=== PATIENT | female | born 1990 | race Caucasian/White ===

== ENCOUNTER 2017-04-25 20:51 | Emergency (ER) | payer OTHER ==
[2017-04-25] MEDS ORDERED: BUPIVACAINE HCL/PF 5 MG/ML 10ML VIAL IV ONE (22:23)
[2017-04-25] MEDS ORDERED: cefTRIAXone SODIUM 1 GM VIAL ONE (23:06)
[2017-04-25] MEDS ORDERED: Lidocaine 1% 5ml(IM or SUTURE)(PAIN CLINIC) ONE (23:07)
[2017-04-25] MEDS ORDERED: oxyCODONE/ACETAMINOPHEN 5/325 TABLET PO ONE (23:07)
[2017-04-25] MEDS: Lidocaine 1% 5ml(IM or SUTURE)(PAIN CLINIC) IJ ONE (23:11)
[2017-04-25] MEDS: BUPIVACAINE HCL/PF 5 MG/ML 10ML VIAL IJ ONE (23:11)
[2017-04-25] MEDS: cefTRIAXone SODIUM 1 GM VIAL IM ONE (23:11)
[2017-04-25] MEDS: oxyCODONE/ACETAMINOPHEN 5/325 TABLET PO ONE (23:11)
[2017-04-25 23:46] VITALS: BP 136/82
--- NOTE | 2017-04-26 06:48 | ED Physician Documentation ---
Abscess - HISTORIAN Historian: patient - HPI Stated Complaint: insect bite Chief Complaint: Abscess Additional Information: spider bite Onset: days ago (3) Timing: worse Duration: worse Location: other (left gluteus walter) Quality: painful Identified Cause?: Yes (spider bite) When Did Symptoms Start: 04/22/17 Where: home Context: Medication Exposure: none Context: Food Exposure: none Context: Other Exposure: spider bite Further Comments: no - ROS CONST: none CVS/RESP: none EYES/ENT: none GI/: none MS/SKIN/LYMPH: other (warm, painful rash left gluteal area) NEURO/PSYCH: none - PAST HX Past History: none Other History: none Surgeries/Procedures: Yes (c-sect, t and a) Immunizations: referred to PCP Allergies/Adverse Reactions: Allergies Allergy/AdvReac Type Severity Reaction Status Date / Time amoxicillin AdvReac Severe Hives Verified 04/25/17 21:01 Home Medications: Ambulatory Orders Medication Instructions Recorded Naproxen [Naprosyn] 500 mg PO Q6 PRN 04/25/17 Sulfamethoxazole/Trimethoprim 1 each PO BID 04/25/17 [Bactrim Ds] - SOCIAL HX Smoking History: non-smoker Alcohol Use: none Drug Use: none - FAMILY HX Family History: none - VITAL SIGNS Vital Signs: Vital Signs Temp Pulse Resp BP Pulse Ox 97.9 F 74 16 136/82 99 04/25/17 23:35 04/25/17 23:35 04/25/17 23:35 04/25/17 23:35 04/25/17 23:35 - REVIEWED ASSESSMENTS Nursing Assessment Reviewed: Yes Vitals Reviewed: Yes Procedures Site: left gluteal area Blade Size: 11 I & D Procedure: betadine prep, sterile drapes applied, sterile dressing applied , gauze wick placed Progress: well tolerated, 12 cc 0.5 % Marcaine used for local anesthesia, bleeding moderate, no complications Progress - Results/Orders Results/Orders: wound culture taken - Progress Progress: see procedure note, stable entire time in er, given 1 gram rocephin im in er Critical Care Note - Critical Care Note Total Time (mins): 0 ED Results Lab/Radiology - Lab Results Lab Results: none ordered - Radiology Radiology Impressions: none ordered - Orders Orders: ED Orders Category Date Time Status WOUND CULTURE Routine Lab 04/25/17 21:00 Received Bupivacaine HCl/Pf [Marcaine 0.5%] Med 04/25/17 23:04 Discontinued 10 mg IJ NOW ONE Bupivacaine HCl/Pf [Marcaine 0.5%] Med 04/25/17 22:23 Discontinued 50 mg IV .STK-MED ONE Lidocaine 1% 5ml(IM or SUTURE) [Xylocaine] Med 04/25/17 23:07 Discontinued 50 mg .ROUTE .STK-MED ONE Lidocaine 1% 5ml(IM or SUTURE) [Xylocaine] Med 04/25/17 23:04 Discontinued 50 mg IJ NOW ONE cefTRIAXone SODIUM [Rocephin] Med 04/25/17 23:06 Discontinued 1 gm .ROUTE .STK-MED ONE cefTRIAXone SODIUM [Rocephin] Med 04/25/17 23:04 Discontinued 1 gm IM NOW ONE oxyCODONE HCL/ACETAMINOPHEN [Percocet 5-325 mg Tablet] Med 04/25/17 23:07 Discontinued 1 each PO .STK-MED ONE oxyCODONE HCL/ACETAMINOPHEN [Percocet 5-325 mg Tablet] Med 04/25/17 23:04 Discontinued 1 each PO NOW ONE Abscess Physical Exam - EXAM General Appearance: alert, moderate distress Skin: warm,dry, tender indurated area, pointing fluctuant with erythema, erythema Location: other (left gluteus walter) Character: asymmetric, other (4 cm round patch) Symptoms: warmth, tenderness, induration Extremities: non-tender, nml ROM, no edema EENT: eyes nml inspection, lips nml, gums nml, pharynx nml Neck: trachea midline, no swelling Respiratory: no resp distress, chest non-tender, breath sounds normal CVS: reg. rate & rhythm, heart sounds nml Abdomen: non-tender, no organomegaly, nml bowel sounds, no distention Neuro/Psych: oriented x3, CN's nml as tested, motor nml, sensation nml, mood/ affect nml, disoriented Discharge Clincal Impression: Abscess Referrals: Primary Doctor,No [Primary Care Provider] - 2 Days Home Medications: Ambulatory Orders Naproxen [Naprosyn] 500 mg PO Q6 PRN 04/25/17 Sulfamethoxazole/Trimethoprim [Bactrim Ds] 1 each PO BID 04/25/17 Comments: Discharged with orders to finish bactrim ds as directed, tetracycline 500 mg 2 p.o. bid #40, no refill and meloxicam 7.5 mg 1 p.o. bid #20, no refill Condition: Stable Disposition: 01 HOME, SELF-CARE Decision to Admit: NO Decision Time: 23:30
== END 2017-04-25 23:35 | disposition home or self-care (01) ==
LOC: ED 20:51
DX: L02.31 Cutaneous abscess of buttock (principal)
CPT/HCPCS: 87070; A9270; J0696; J3490; 10060; 96372; 99283

== ENCOUNTER 2017-08-12 17:39 | Emergency (ER) | payer OTHER ==
--- NOTE | 2017-08-12 17:43 | ED Physician Documentation ---
General Adult - HISTORIAN Historian: patient - HPI Stated Complaint: high blood pressure Chief Complaint: Dizziness Onset: hours (2) Timing: better Severity: mild Modifying Factors: she did not note any modifing factors Context: She notes after feeling like her chest was vibrating around 430 pm Quality: she states she still feels a little foggy but no chest vibrations Further Comments: no Last known Well Date: 08/12/17 Last Known Well Time: 16:00 Last known Well Code/Unknown Code: Unknown - ROS CONST: sweating, weakness. denies: fever, recent illness, chills EYES/ENT: denies: problems with vision, sore throat, nasal drainage, nasal congestion GI/: diarrhea. denies: abdominal pain, problems urinating, vomiting, nausea MS/SKIN/LYMPH: none - PAST HX Past History: other (PCOS and abnormal pap ) Other History: none Surgeries/Procedures: other (DNC and clop ) Immunizations: referred to PCP Allergies/Adverse Reactions: Allergies Allergy/AdvReac Type Severity Reaction Status Date / Time amoxicillin AdvReac Severe Hives Verified 08/12/17 18:00 Home Medications: Ambulatory Orders Medication Instructions Recorded Escitalopram Oxalate [Lexapro] 20 mg PO DAILY 08/12/17 Metformin HCl [Glucophage] 500 mg PO BID 08/12/17 - SOCIAL HX Smoking History: non-smoker Alcohol Use: none Drug Use: none - FAMILY HX Family History: Yes - VITAL SIGNS Vital Signs: Vital Signs Temp Pulse Resp BP Pulse Ox 136/82 04/25/17 23:35 - REVIEWED ASSESSMENTS Nursing Assessment Reviewed: Yes Vitals Reviewed: Yes General Adult Physical Exam - PHYSICAL EXAM GENERAL APPEARANCE: no distress EENT: eye inspection normal, ENT inspection normal NECK: normal inspection RESPIRATORY: no resp distress, chest non-tender, breath sounds normal CVS: reg rate & rhythm, heart sounds normal, equal pulses, no murmur ABDOMEN: soft, normal bowel sounds BACK: normal inspection SKIN: warm/dry, normal color EXTREMITIES: non-tender, normal range of motion, no evidence of injury, no edema NEURO: oriented X3, CN's nml as tested, motor nml, sensation nml, mood/affect nml, cognition normal Discharge Clincal Impression: Dizziness, Abscess Referrals: Primary Doctor,No [Primary Care Provider] - 2 Days Condition: Stable Disposition: 01 HOME, SELF-CARE Decision to Admit: NO Date of Decison to Admit: 08/12/17 Decision Time: 18:28
[2017-08-12] MEDS: 0.9 % SODIUM CHLORIDE 1,000 ML IV ONE (18:10)
[2017-08-12 18:11] LABS: BASOPHILS % 0.7 (0.0-1.5); EOSINOPHILS % 2.8 % (0.0-6.8); MEAN CORPUSCULAR HEMOGLOBIN 27.3 pg (28.0-34.0); MEAN CORPUSCULAR VOLUME 82.8 fl (80.0-100.0); MONOCYTES % 4.9 % (0.0-11.0); NEUTROPHILS # 5.1 # k/uL (1.4-7.7)
[2017-08-12 18:19] LABS: eGFR (African) > 60; eGFR (Non-African) > 60
[2017-08-12 18:37] VITALS: BP 123/68
== END 2017-08-12 19:10 | disposition home or self-care (01) ==
LOC: ED 17:39
DX: R42 Dizziness and giddiness (principal); L02.91 Cutaneous abscess, unspecified
CPT/HCPCS: 80053; 85025; J7030; 96360; 99283; S1016

== ENCOUNTER 2017-11-24 15:41 | Emergency (ER) | payer OTHER ==
--- NOTE | 2017-11-24 16:38 | ED Physician Documentation ---
General Adult - HISTORIAN Historian: patient - HPI Stated Complaint: cough Chief Complaint: Fever Additional Information: 27 yo female presents with c/o intermittent low grade fever for 3 weeks, however , had increasing fever to 102F today. c/o runny nose, cough, body aches. Timing: still present - ROS CONST: fever - PAST HX Past History: none Allergies/Adverse Reactions: Allergies Allergy/AdvReac Type Severity Reaction Status Date / Time amoxicillin AdvReac Severe Hives Verified 11/24/17 16:05 Home Medications: Ambulatory Orders Medication Instructions Recorded Escitalopram Oxalate [Lexapro] 20 mg PO DAILY 08/12/17 Metformin HCl [Glucophage] 500 mg PO DAILY 08/12/17 Oseltamivir Phosphate [Tamiflu] 75 mg PO BID #10 capsule 11/24/17 - SOCIAL HX Smoking History: non-smoker - FAMILY HX Family History: No - VITAL SIGNS Vital Signs: Vital Signs Temp Pulse Resp BP Pulse Ox 98.8 F 122 H 22 128/88 98 11/24/17 16:17 11/24/17 16:17 11/24/17 16:17 11/24/17 16:17 11/24/17 16:17 Progress - Results/Orders Results/Orders: Unfortunately, lab testing for Influenza is unavailable at this time at this hospital. Discussed this with patient and that if she wants definitive diagnosis by lab testing, I would encourage her to go to a local urgent care or other ER. However, based on symptoms, pt most likely has Influenza with fever, runny nose, body aches and expsure to INlfuenza General Adult Physical Exam - PHYSICAL EXAM GENERAL APPEARANCE: no distress EENT: eye inspection normal, ENT inspection normal, pharynx normal, CASIE NECK: normal inspection RESPIRATORY: no resp distress CVS: reg rate & rhythm, heart sounds normal ABDOMEN: soft NEURO: oriented X3 Discharge Clincal Impression: Influenza Referrals: Martinez Echavarria MD [Primary Care Provider] - 2 Days Condition: Good Disposition: HOME, SELF-CARE Decision to Admit: NO Decision Time: 16:38
[2017-11-24 16:50] VITALS: BP 124/78
== END 2017-11-24 16:47 | disposition home or self-care (01) ==
LOC: ED 15:41
DX: J11.1 Influenza due to unidentified influenza virus with other respiratory manifestations (principal)
CPT/HCPCS: 99282

== ENCOUNTER 2019-06-30 07:38 | Emergency (ER) | payer OTHER ==
--- NOTE | 2019-06-30 07:43 | ED Physician Documentation ---
General Adult - HISTORIAN Historian: patient - HPI Stated Complaint: Pain/Constipation in Chief Complaint: General Adult Onset: days ago Timing: still present Severity: moderate Further Comments: yes (Pt is a 29 yo female at 12 weeks gestation, who c/o no BM x 7 days and limited voiding. Pt called her charge coordinator provider at [facility], and was told to try taking Miralax, which she did last night to no effect. Pt now also c/o hemorrhoids. There is concern for bowel obstruction in . Pt has not been vomiting. No vag discharge or bleeding.) - ROS CONST: no problems EYES/ENT: none CVS/RESP: none GI/: abdominal pain (constipation), problems urinating MS/SKIN/LYMPH: none - PAST HX Past History: other (anxiety, C-sec) Allergies/Adverse Reactions: Allergies Allergy/AdvReac Type Severity Reaction Status Date / Time acetaminophen [From [place]] Allergy Intermediate vomited Verified 06/30/19 07:52 immediately hydrocodone [From [place]] Allergy Intermediate vomited Verified 06/30/19 07:52 immediately amoxicillin AdvReac Mild Hives Verified 06/30/19 07:52 Home Medications: Ambulatory Orders Medication Instructions Recorded Bupropion HCl [Bupropion Xl] 150 mg PO HS 02/19/19 - SOCIAL HX Smoking History: non-smoker - FAMILY HX Family History: No - VITAL SIGNS Vital Signs: Vital Signs Temp Pulse Resp BP Pulse Ox 145/91 02/19/19 21:40 - REVIEWED ASSESSMENTS Nursing Assessment Reviewed: Yes Vitals Reviewed: Yes Progress - Progress Progress: 1 L NS IVF Dulcolax x1 Barros cath placed with 900 cc out u/a - neg Fleets enema some bm's after enema, pt did not keep enema in for long inhibited bm 2nd to hemorrhoid pain May use [id number] Preparation H with Lidocaine for Hemorrhoids. May use [id number] Magnesium Citrate for constipation. May use stool softener such as Dulcolax throughout . Follow up with ORTHOTICS TECHNICIAN. General Adult Physical Exam - PHYSICAL EXAM GENERAL APPEARANCE: mild distress EENT: pharynx normal NECK: normal inspection, supple RESPIRATORY: no resp distress, chest non-tender, breath sounds normal CVS: reg rate & rhythm, heart sounds normal ABDOMEN: soft, no organomegaly, decreased BS RECTAL: heme negative stool, hemorrhoids (small external hemorrhoid) BACK: normal inspection, no CVA tenderness SKIN: warm/dry, normal color EXTREMITIES: non-tender, normal range of motion, no evidence of injury, no edema NEURO: oriented X3, motor nml, sensation nml Discharge Clincal Impression: constipation in pregnancey Referrals: Primary Doctor,No [Primary Care Provider] - Condition: Stable Disposition: 01 HOME, SELF-CARE Decision to Admit: NO Decision Time: 13:40
[2019-06-30 07:56] VITALS: BP 141/93
[2019-06-30 08:07] LABS: BASOPHILS % 0.6 % (0.0-1.5); NEUTROPHILS # 9.9 # k/uL (1.4-7.7)
[2019-06-30] MEDS: 0.9 % SODIUM CHLORIDE 1,000 ML IV ONE ×2 (08:10→08:19)
[2019-06-30 08:20] LABS: eGFR (Non-African) > 60
[2019-06-30] MEDS: BISACODYL 10 MG SUPP.RECT RC ONE (08:20)
[2019-06-30 11:23] LABS: APPEARANCE,URINE CLEAR (CLEAR); COLOR,URINE YELLOW (YELLOW); OCCULT BLOOD,URINE NEGATIVE (NEGATIVE); UROBILINOGEN URINE 0.2 Eu (0.2-1.0)
== END 2019-06-30 13:37 | disposition home or self-care (01) ==
LOC: ED 07:38
DX: O99.611 Diseases of the digestive system complicating pregnancy, first trimester (principal); K59.00 Constipation, unspecified; Z3A.00 Weeks of gestation of pregnancy not specified
CPT/HCPCS: 80053; 81002; 83690; 85025; J7030; 51702; 96361; 99282; 99284; S1016